=== PATIENT | female | born 1950 | race Caucasian/White ===

== ENCOUNTER 2017-11-13 08:30 | Day surgery (SDC) | payer OTHER ==
[~2017-11-13] VITALS: Ht 160 cm; Wt 74.3 kg
[~2017-11-13 08:30] MED LIST: ALBU90OI6 INH; CALCA500CH PO; RANI150 PO; ZYRTEC10 M2 PO
[2017-11-13] MEDS ORDERED: ESTA1 (09:04)
[2017-11-13] MEDS ORDERED: MONT10T (09:04)
== END 2017-11-13 11:07 | disposition home or self-care (01) ==
LOC: ORSCSDS 08:30
PROVIDERS: Internal Medicine Gastroenterology
PROC: 0DBP8ZX Excision of Rectum, Via Natural or Artificial Opening Endoscopic, Diagnostic (ICD-10-PCS; principal; 2017-11-13 09:45)
DX: Z12.11 Encounter for screening for malignant neoplasm of colon (principal); K62.1 Rectal polyp; K57.30 Diverticulosis of large intestine without perforation or abscess without bleeding
CPT/HCPCS: 88305; J2405; J7120

== ENCOUNTER → 2018-05-01 | Outpatient (CLI) | payer OTHER ==
[~2018-05-01] MED LIST changes: +ESTA1; +MONT10T
[2018-05-02 12:10] LABS: Candida species (DNA Probe) Negative (NEGATIVE); G. vaginalis (DNA Probe) Negative (NEGATIVE); T. vaginalis (DNA Probe) Negative (NEGATIVE)
== END ==
LOC: LAB SHORT 11:25 → LAB 11:25
PROVIDERS: Obstetrics & Gynecology
DX: N76.0 Acute vaginitis (principal)
CPT/HCPCS: 87480; 87510; 87660

== ENCOUNTER → 2018-06-11 | Outpatient (CLI) | payer OTHER | LOC: LAB EV 12:30 → LAB SHORT 12:30 | DX: R30.0 Dysuria (principal) | CPT/HCPCS: 87086 ==

== ENCOUNTER → 2018-12-13 | Outpatient (CLI) | payer OTHER ==
[2018-12-17 15:06] LABS: HPV 16 Negative (Negative); HPV 18 Negative (Negative); HPV OTHER HR TYPES Negative (Negative)
== END | disposition home or self-care (01) ==
LOC: LAB 19:38 → LAB SHORT 19:38
PROVIDERS: Obstetrics & Gynecology
DX: Z01.419 Encounter for gynecological examination (general) (routine) without abnormal findings (principal)
CPT/HCPCS: 87624; G0123

== ENCOUNTER → 2020-08-10 | Outpatient (CLI) | payer OTHER | LOC: PLD 11:38 → LAB SHORT 11:38 | DX: L57.0 Actinic keratosis (principal); L28.0 Lichen simplex chronicus | CPT/HCPCS: 88305 ==

== ENCOUNTER → 2022-01-20 | Outpatient (CLI) | payer OTHER | END | disposition home or self-care (01) | LOC: PLD 14:55 → LAB SHORT 14:55 | DX: L57.0 Actinic keratosis (principal) | CPT/HCPCS: 88305 ==

== ENCOUNTER → 2022-03-02 | Outpatient (CLI) | payer OTHER ==
[2022-03-03 12:43] LABS: Stool Occult Bld Immuno 1 Negative (NEGATIVE)
== END ==
LOC: LAB SHORT 19:14 → LAB 19:14
PROVIDERS: Physician Assistant
DX: K92.1 Melena (principal)
CPT/HCPCS: 82274

== ENCOUNTER → 2023-04-17 | Outpatient (CLI) | payer OTHER | END | disposition home or self-care (01) | LOC: LAB SHORT 12:11 → LAB 12:11 | DX: L57.0 Actinic keratosis (principal); B88.9 Infestation, unspecified | CPT/HCPCS: 88305 ==

== ENCOUNTER 2023-10-12 10:40 | Day surgery (SDC) | payer OTHER ==
[~2023-10-12] VITALS: Ht 157.5 cm; Wt 80.7 kg
[2023-10-12] MEDS ORDERED: ALLEGRA ALLERG180 MG PO (11:13)
[2023-10-12] MEDS ORDERED: LOSA25 PO (11:14)
--- NOTE | 2023-10-12 11:22 | NUR ---
10/12/23 1122 Emerald Kaye TETRACAINE: 112 ROBERT: 1117
[2023-10-12 12:18] VITALS: BP 103/71
== END 2023-10-12 12:26 | disposition home or self-care (01) ==
LOC: ORSCSDS 10:40
PROVIDERS: Ophthalmology
PROC: 08RJ3JZ Replacement of Right Lens with Synthetic Substitute, Percutaneous Approach (ICD-10-PCS; principal; 2023-10-12 12:00)
DX: H25.11 Age-related nuclear cataract, right eye (principal); H25.13 Age-related nuclear cataract, bilateral; I10 Essential (primary) hypertension; K21.9 Gastro-esophageal reflux disease without esophagitis; J45.909 Unspecified asthma, uncomplicated; E66.9 Obesity, unspecified; Z79.899 Other long term (current) drug therapy
CPT/HCPCS: J2250; J3010; J3301; J7040; V2632

== ENCOUNTER 2023-10-19 11:47 | Day surgery (SDC) | payer OTHER ==
[~2023-10-19] VITALS: Ht 157.5 cm; Wt 80.7 kg
[~2023-10-19 11:47] MED LIST changes: +ALLEGRA ALLERG180 MG PO; +LOSA25 PO
[2023-10-19] MEDS ORDERED: PANTOPRAZOLE SO40 M2 PO (12:18)
[2023-10-19] MEDS ORDERED: Acerola C500 MG PO (12:20)
[2023-10-19] MEDS ORDERED: CALCIUM 600 MG1 EA18 PO (12:20)
--- NOTE | 2023-10-19 12:31 | NUR ---
10/19/23 1231 Diana Fung LEFT EYE CONFIRMED CORRECT EYE PER PT AND CONSENT FORM. TETRACAINE PLACED IN LEFT EYE AT 1217. PLEDGET PLACED IN LEFT EYE AT 120/77. PT TOLERATED WELL. CALL LIGHT WITHIN REACH.
--- NOTE | 2023-10-19 15:10 | NUR ---
10/19/23 1510 Chin Newberry PT MAINTAINED O2 92-97% IN SDU WITH BREIF DROPS LOW 90%. PT WAS ABLE TO RETURN O2 TO >92% SPONTANEOUSLY. PT DENIED CARDIAC AND RESPIRATORY SYMPTOMS--INCLUDING CHEST PAIN, DIZZINESS, AND SHORTNESS OF BREATH--AND NONE WERE OBSERVED. DR. AMEZQUITA WAS CONSULTED AND APPROVED D/C IN CURRENT STATE. PT TALKATIVE AND RELAXED UPON D/C.
[2023-10-19 15:11] VITALS: BP 115/82
== END 2023-10-19 13:45 | disposition home or self-care (01) ==
LOC: ORSCSDS 11:47
PROVIDERS: Ophthalmology
PROC: 08RK3JZ Replacement of Left Lens with Synthetic Substitute, Percutaneous Approach (ICD-10-PCS; principal; 2023-10-19 13:30)
DX: H25.12 Age-related nuclear cataract, left eye (principal); Z96.1 Presence of intraocular lens; R06.02 Shortness of breath; J44.9 Chronic obstructive pulmonary disease, unspecified; K21.9 Gastro-esophageal reflux disease without esophagitis; E66.9 Obesity, unspecified; Z68.32 Body mass index [BMI] 32.0-32.9, adult; Z79.899 Other long term (current) drug therapy
CPT/HCPCS: J2250; J3010; J3301; J7040; V2632

== ENCOUNTER → 2024-01-17 | Outpatient (CLI) | payer OTHER ==
[~2024-01-17] MED LIST changes: +Acerola C500 MG PO; +CALCIUM 600 MG1 EA18 PO; +PANTOPRAZOLE SO40 M2 PO
== END ==
LOC: LAB 14:33 → LAB SHORT 14:33
DX: L57.0 Actinic keratosis (principal); L90.5 Scar conditions and fibrosis of skin
CPT/HCPCS: 88305

== ENCOUNTER → 2025-01-14 | Outpatient (CLI) | payer OTHER ==
[2025-01-14 18:31] LABS: Adenovirus F 40/41 Not Detected (NOT DETECT); Astrovirus Not Detected (NOT DETECT); Campylobacter Sp Not Detected (NOT DETECT); Cryptosporidium Not Detected (NOT DETECT); Cyclospora Cayetanensis Not Detected (NOT DETECT); E. Coli O157 Not Detected (NOT DETECT); Entamoeba Histolytica Not Detected (NOT DETECT); Enteroaggregative E. coli-EAEC Not Detected (NOT DETECT); Enteropathogenic E. coli-EPEC Not Detected (NOT DETECT); Enterotoxigenic E. coli-ETEC Not Detected (NOT DETECT); Giardia Lamblia Not Detected (NOT DETECT); Norovirus GI/GII Not Detected (NOT DETECT); Plesiomonas Shigelloides Not Detected (NOT DETECT); Rotavirus A Not Detected (NOT DETECT); Salmonella Sp Not Detected (NOT DETECT); Sapovirus Not Detected (NOT DETECT); Shiga Toxin-prod E. coli-STEC Not Detected (NOT DETECT); Shigella/Enteroin E. coli-EIEC Not Detected (NOT DETECT); Vibrio Cholerae Not Detected (NOT DETECT); Vibrio Sp Not Detected (NOT DETECT); Yersinia Enterocolitica Not Detected (NOT DETECT)
== END | disposition home or self-care (01) ==
LOC: LAB 09:00 → LAB SHORT 09:00
PROVIDERS: Family Medicine
DX: K52.9 Noninfective gastroenteritis and colitis, unspecified (principal)
CPT/HCPCS: 87507